=== PATIENT | female | born 1990 | race Caucasian/White ===

== ENCOUNTER 2024-07-22 13:42 | Emergency (ER) | payer BC, OTHER ==
[~2024-07-22] VITALS: Ht 165.1 cm; Wt 49.9 kg
[2024-07-22 15:10] VITALS: BP 130/76; O2SAT 99
== END 2024-07-22 15:11 | disposition home or self-care (01) ==
LOC: ER 13:42
DX: S80.12XA Contusion of left lower leg, initial encounter (principal); R60.0 Localized edema; X58.XXXA Exposure to other specified factors, initial encounter; Y93.9 Activity, unspecified; Y92.9 Unspecified place or not applicable; Y99.9 Unspecified external cause status
CPT/HCPCS: A4606; A4663